=== PATIENT | male | born 1940 | race Caucasian/White ===

== ENCOUNTER 2022-02-05 11:05 | Emergency (ER) | payer BC ==
[~2022-02-05] VITALS: Ht 182.9 cm; Wt 93.9 kg
[~2022-02-05 11:05] MED LIST: AMLO5TAB4 PO; ASPI-1169 PO; ATOR40TA PO; LEVE1000 PO; LEVE500T9 PO; METO50TA7 PO; PRIM250T32 PO; PRIM50TA27 PO
--- NOTE | 2022-02-05 11:10 | NUR ---
BIB SON C/O RLQ ABDOMINAL PAIN X 2 DAYS. AMBULATORY, [id number]
--- NOTE | 2022-02-05 11:20 | NUR ---
BLOOD DRAWN TAKEN LAB. TECH.
--- NOTE | 2022-02-05 11:25 | NUR ---
SWAB FOR COVID TEST SENT TO LAB.
--- NOTE | 2022-02-05 11:35 | NUR ---
PT IS WHEELED TO CT SCAN VIA [facility].
[2022-02-05 11:42] LABS: BASOPHILS # (AUTO) 0.1 K/uL (0.0-0.2); BASOPHILS % (AUTO) 1.2 % (0.0-2.0); EOSINOPHILS % (AUTO) 3.8 % (0.0-6.0); HEMATOCRIT 41 % (39-51); HEMOGLOBIN 13.2 g/dL (13.5-17.5); LYMPHOCYTES # (AUTO) 2.2 K/uL (0.8-4.8); LYMPHOCYTES % (AUTO) 24.5 % (20.0-44.0); MEAN CORPUSCULAR HGB CONC 33 g/dl (31.0-36.0); MEAN CORPUSCULAR VOLUME 93 fL (80-96); MONOCYTES # (AUTO) 0.6 K/uL (0.1-1.30); MONOCYTES % (AUTO) 6.8 % (2.0-12.0); NEUTROPHILS # (AUTO) 5.7 K/uL (1.8-8.9); NEUTROPHILS % (AUTO) 63.7 % (43.0-81.0); PLATELET COUNT (AUTO) 286 K/uL (150-450); RED BLOOD CELL COUNT(AUTO) 4.35 MIL/uL (4.5-6.0)
[2022-02-05] MEDS: IV NS 0.9% 500 ML BAG IV ONE (12:00)
[2022-02-05 12:14] LABS: CALCIUM, SERUM 9.1 mg/dL (8.5-10.1); CREATININE 1.2 mg/dL (0.6-1.3); POTASSIUM 3.9 mmol/L (3.5-5.1)
[2022-02-05 12:21] LABS: ALBUMIN 3.4 g/dL (3.4-5.0); BILIRUBIN,DIRECT 0.1 mg/dL (0.0-0.2); BILIRUBIN,TOTAL 0.3 mg/dL (0.2-1.0); TOTAL PROTEIN, SERUM 7.9 g/dL (6.4-8.2)
--- NOTE | 2022-02-05 12:43 | NUR ---
URINE SAMPLE SENT TO LAB.
[2022-02-05 13:13] LABS: BILIRUBIN,URINE NEGATIVE (NEGATIVE); COLOR,URINE YELLOW (YELLOW); LEUKOCYTE ESTERASE ,URINE NEGATIVE (NEGATIVE); NITRITE, URINE NEGATIVE (NEGATIVE); PROTEIN,URINE NEGATIVE (NEGATIVE); UGLUCOSE NEGATIVE (NEGATIVE); UROBILINOGEN,URINE 0.2 EU/dL (0.2)
[2022-02-05] MEDS ORDERED: FAMO-131 PO (13:39)
[2022-02-05 14:13] LABS: BACTERIA,URINE RARE /HPF (None Seen); CALCIUM CARBONATE CRYSTALS,UR None Seen /HPF (None Seen); CALCIUM OXALATE CRYSTALS,UR None Seen /HPF (None Seen); CALCIUM PHOSPHATE CRYSTALS,UR None Seen /HPF (None Seen); CYSTINE CRYSTALS,URINE None Seen /HPF (None Seen); FATTY CASTS,URINE None Seen /LPF (None Seen); HYALINE CASTS, URINE None Seen /LPF (None Seen); OTHER CRYSTALS,URINE None Seen /HPF (None Seen); TRICHOMONAS,URINE None Seen /HPF (None Seen); TRIPLE PHOSPHATE CRYSTAL,UR None Seen /HPF (None Seen); TYROSINE CRYSTAL,URINE None seen /HPF (None Seen); URIC ACID CRYSTALS,URINE None Seen /HPF (None Seen); URINE AMORPHOUS PHOSPHATES None Seen /HPF (None Seen); URINE AMORPHOUS URATE None Seen /HPF (None Seen); WBC,URINE 0-2 /HPF (0-3); YEAST,URINE None Seen /HPF (None Seen)
[2022-02-05 14:14] LABS: COARSE GRANULAR CASTS,URINE None Seen /LPF (None Seen); FINE GRANULAR CASTS,URINE None Seen /LPF (None Seen); MUCUS,URINE None Seen /LPF (None Seen); RED BLOOD CELL CASTS,URINE None Seen /LPF (None Seen); SPERM,URINE None Seen /HPF (None Seen); WAXY CASTS,URINE None Seen /LPF (None Seen)
--- NOTE | 2022-02-05 14:44 | NUR ---
CALLED DR. WINSOME LOFTON [phone] 3,1 LEFT VM
--- NOTE | 2022-02-05 15:20 | NUR ---
IV removed. Catheter intact and site benign. Pressure and 4x4 applied to site. No bleeding noted. Patient discharged to home in stable condition. Written and verbal after care instructions given. Patient verbalizes understanding of instruction.
[2022-02-05 15:21] VITALS: BP 137/77
== END 2022-02-05 15:21 | disposition home or self-care (01) ==
LOC: ER 11:08
DX: R10.31 Right lower quadrant pain (principal); K57.90 Diverticulosis of intestine, part unspecified, without perforation or abscess without bleeding; K80.20 Calculus of gallbladder without cholecystitis without obstruction; N28.1 Cyst of kidney, acquired; R16.0 Hepatomegaly, not elsewhere classified; K42.9 Umbilical hernia without obstruction or gangrene; N40.0 Benign prostatic hyperplasia without lower urinary tract symptoms; Z20.822 Contact with and (suspected) exposure to COVID-19; E78.5 Hyperlipidemia, unspecified; G40.909 Epilepsy, unspecified, not intractable, without status epilepticus; M10.9 Gout, unspecified; Z90.49 Acquired absence of other specified parts of digestive tract; I10 Essential (primary) hypertension; Z86.010 Personal history of colon polyps
CPT/HCPCS: 36415; 74176; 76705; 80048; 80076; 81001; 82962; 83605; 83690; 85025; 85730; 87040 ×2; 87426; 93005; 99285; C9803

== ENCOUNTER 2022-03-21 12:40 | Outpatient (CLI) | payer BC ==
[~2022-03-21 12:40] MED LIST changes: +FAMO-131 PO
[2022-03-21 13:22] LABS: BASOPHILS # (AUTO) 0.1 K/uL (0.0-0.2); HEMATOCRIT 39 % (39-51); LYMPHOCYTES # (AUTO) 2.6 K/uL (0.8-4.8); LYMPHOCYTES % (AUTO) 36.5 % (20.0-44.0); MEAN CORPUSCULAR HGB CONC 33 g/dl (31.0-36.0); MEAN CORPUSCULAR VOLUME 92 fL (80-96); MONOCYTES # (AUTO) 0.5 K/uL (0.1-1.30); MONOCYTES % (AUTO) 7.7 % (2.0-12.0); NEUTROPHILS # (AUTO) 3.3 K/uL (1.8-8.9); NEUTROPHILS % (AUTO) 45.8 % (43.0-81.0); PLATELET COUNT (AUTO) 258 K/uL (150-450); RED BLOOD CELL COUNT(AUTO) 4.29 MIL/uL (4.5-6.0); WHITE BLOOD COUNT (AUTO) 7.1 K/uL (4.3-11.0)
[2022-03-21 13:36] LABS: CALCIUM, SERUM 9.1 mg/dL (8.5-10.1); CREATININE 1.3 mg/dL (0.6-1.3)
== END 2022-03-21 23:59 | disposition home or self-care (01) ==
LOC: LAB 12:40
PROVIDERS: ATTEND Internal Medicine Interventional Cardiology
DX: I10 Essential (primary) hypertension (principal); D68.9 Coagulation defect, unspecified
CPT/HCPCS: 36415; 80048-TC; 85025-TC; 85730-TC

== ENCOUNTER 2022-09-19 16:20 | Emergency (ER) | payer BC ==
[~2022-09-19] VITALS: Ht 162.6 cm; Wt 90.7 kg
--- NOTE | 2022-09-19 16:50 | NUR ---
RECEIVED PT 81 YRS MALE CAME FROM home c/o laceration on lt hand today no active bleeding open skin
--- NOTE | 2022-09-19 17:22 | NUR ---
GUI FOR PROVIDER TO SEE PATENT
[2022-09-19] MEDS ORDERED: TDAP [DIPH/PERTUSSIS/TET] 0.5 ML VIAL IM ONE (18:06)
[2022-09-19] MEDS ORDERED: LIDOCAINE 1% INJ 50 ML MDV IJ ONE (18:08)
[2022-09-19] MEDS: TDAP [DIPH/PERTUSSIS/TET] 0.5 ML VIAL IM ONE (18:13)
[2022-09-19] MEDS ORDERED: AMOX/CLAVULANATE 875 MG TABLET ONE (18:38)
[2022-09-19] MEDS: AMOX/CLAVULANATE 875 MG TABLET PO ONE (18:42)
[2022-09-19] MEDS ORDERED: AMOX-430 PO (19:27)
--- NOTE | 2022-09-19 19:30 | NUR ---
Patient discharged to home in stable condition. Written and verbal after care instructions given. Patient verbalizes understanding of instruction.
[2022-09-19 19:31] VITALS: BP 149/90
== END 2022-09-19 19:31 | disposition home or self-care (01) ==
LOC: ER 16:36
DX: S61.412A Laceration without foreign body of left hand, initial encounter (principal); G40.909 Epilepsy, unspecified, not intractable, without status epilepticus; I10 Essential (primary) hypertension; Z79.899 Other long term (current) drug therapy; W54.0XXA Bitten by dog, initial encounter; Y93.89 Activity, other specified; Y92.89 Other specified places as the place of occurrence of the external cause; Y99.8 Other external cause status
CPT/HCPCS: 99283; 12002; 90471; 90715; 73130; J3490; A6403 ×2

== ENCOUNTER 2022-09-22 10:38 | Emergency (ER) | payer BC ==
[~2022-09-22] VITALS: Ht 180.3 cm; Wt 90.3 kg
[~2022-09-22 10:38] MED LIST changes: +AMOX-430 PO
--- NOTE | 2022-09-22 11:01 | NUR ---
TO ER BED 9. BIBS C/O VISIT FOR WOUND CHECK, LACERATION REPAIR 09/19, L HAND LAC FROM A DOG BITE. DR PLAZA AT BEDSIDE FOR EVAL.
[2022-09-22 11:18] VITALS: BP 158/94
--- NOTE | 2022-09-22 11:18 | NUR ---
Patient discharged to home in stable condition. Written and verbal after care instructions given. Patient verbalizes understanding of instruction.
== END 2022-09-22 11:18 | disposition home or self-care (01) ==
LOC: ER 10:40
DX: S61.412D Laceration without foreign body of left hand, subsequent encounter (principal); I10 Essential (primary) hypertension; Z79.899 Other long term (current) drug therapy; W54.0XXD Bitten by dog, subsequent encounter
CPT/HCPCS: 99282; A6403

== ENCOUNTER 2022-09-30 10:55 | Emergency (ER) | payer BC ==
[~2022-09-30] VITALS: Ht 180.3 cm; Wt 90.3 kg
[2022-09-30 11:20] VITALS: BP 141/81
== END 2022-09-30 12:02 | disposition home or self-care (01) ==
LOC: ER 10:55
DX: S61.452D Open bite of left hand, subsequent encounter (principal); G40.909 Epilepsy, unspecified, not intractable, without status epilepticus; Z79.82 Long term (current) use of aspirin; X58.XXXD Exposure to other specified factors, subsequent encounter